=== PATIENT | female | born 1950 | race Caucasian/White ===

== ENCOUNTER 2021-06-15 00:40 | Inpatient (IN) | payer MEDICARE, OTHER ==
[~2021-06-15] VITALS: Ht 152.4 cm; Wt 40.8 kg
[2021-06-15] MEDS ORDERED: methylPREDNISolone SOD SUCC 125 MG/2ML VIAL ONE (00:55)
--- NOTE | 2021-06-15 00:59 | NUR ---
PATIENT CAME TO THE ER [facility] FROM HOME C/O MIDSTERNAL CHEST PAIN RADIATING TO THE BACK THAT HAS BEEN ONGOING FOR A "COUPLE OF DAYS". PATIENT IS ALERT AND ORIENTED x4. PATIENT IS USUALLY ON 2L OF OXYGEN AT HOME. PATIENT IS CURRENTLY BREATHING EVENLY AND UNLABORED ON 2L OF NASAL CANNULA AT 99%. PATIENT IS CONNECTED TO THE MONITOR.
[2021-06-15] MEDS ORDERED: methylPREDNISolone SOD SUCC 125 MG/2ML VIAL IV ONE (01:00)
--- NOTE | 2021-06-15 01:15 | NUR ---
RAD AT BEDSIDE
[2021-06-15 01:41] LABS: BASOPHILS % (AUTO) 0.4 % (0.0-2.0); EOSINOPHILS % (AUTO) 2.1 % (0.0-6.0); HEMATOCRIT 35 % (33-45); HEMOGLOBIN 11.4 g/dL (11.5-14.8); LYMPHOCYTES # (AUTO) 3.6 K/uL (0.8-4.8); LYMPHOCYTES % (AUTO) 33.2 % (20.0-44.0); MEAN CORPUSCULAR HGB CONC 33 g/dl (31.0-36.0); MEAN CORPUSCULAR VOLUME 92 fL (82-100); MONOCYTES # (AUTO) 0.9 K/uL (0.1-1.30); MONOCYTES % (AUTO) 8.6 % (2.0-12.0); NEUTROPHILS % (AUTO) 55.7 % (43.0-81.0); PLATELET COUNT (AUTO) 291 K/uL (150-450); RED BLOOD CELL COUNT(AUTO) 3.77 MIL/uL (4.0-5.2); WHITE BLOOD COUNT (AUTO) 10.7 K/uL (4.3-11.0)
[2021-06-15 01:49] LABS: CALCIUM, SERUM 8.8 mg/dL (8.5-10.1); CARBON DIOXIDE 29 mmol/L (21-32); CHLORIDE 102 mmol/L (98-107); CREATININE 0.9 mg/dL (0.6-1.3); GLUCOSE 107 mg/dL (74-106); POTASSIUM 3.4 mmol/L (3.5-5.1); SODIUM SERUM 139 mmol/L (136-145); UREA NITROGEN, BLOOD 13 mg/dL (7-18)
[2021-06-15 02:03] LABS: ALANINE AMINOTRANSFERASE 17 U/L (12-78); ALBUMIN 3.3 g/dL (3.4-5.0); ALKALINE PHOSPHATASE 78 U/L (46-116); ASPARTATE AMINOTRANSFERASE 15 U/L (15-37); BILIRUBIN,DIRECT 0.1 mg/dL (0.0-0.2); BILIRUBIN,TOTAL 0.3 mg/dL (0.2-1.0); TOTAL PROTEIN, SERUM 7.3 g/dL (6.4-8.2)
[2021-06-15] MEDS ORDERED: LEVO75TA7 PO (02:09)
[2021-06-15] MEDS ORDERED: LOSA25TA27 PO (02:09)
[2021-06-15] MEDS ORDERED: ERGO500093 PO (02:09)
[2021-06-15] MEDS ORDERED: PRAS10TA5 PO (02:09)
[2021-06-15] MEDS ORDERED: FURO20TA4 PO (02:09)
[2021-06-15] MEDS ORDERED: AMIO100T4 PO (02:09)
[2021-06-15] MEDS ORDERED: ALBU8.5H8 INH (02:09)
[2021-06-15] MEDS ORDERED: ESCI20TA PO (02:09)
[2021-06-15] MEDS ORDERED: POTA20TA83 PO (02:09)
[2021-06-15] MEDS ORDERED: LORA-259 PO (02:09)
[2021-06-15] MEDS ORDERED: FLUT10.62 INH (02:09)
[2021-06-15] MEDS ORDERED: METH2.5T PO (02:09)
[2021-06-15] MEDS ORDERED: SPIR25TA6 PO (02:09)
[2021-06-15] MEDS ORDERED: FURO40TA5 PO (02:09)
[2021-06-15] MEDS ORDERED: CARV3.122 PO (02:09)
[2021-06-15] MEDS ORDERED: LEUC5TAB PO (02:09)
[2021-06-15] MEDS ORDERED: NITROGLYCERIN 0.4 MG/TAB BOTTLE SL PRN (03:30)
[2021-06-15] MEDS ORDERED: MORPHINE SULFATE INJ 2 MG/ML DISP.SYRIN IV PRN (03:30)
[2021-06-15] MEDS ORDERED: DOCUSATE SODIUM 100 MG CAPSULE PO PRN (03:30)
[2021-06-15] MEDS ORDERED: ONDANSETRON HCL/PF 4 MG/2 ML VIAL IVP PRN (03:30)
[2021-06-15] MEDS ORDERED: MAG HYDROX/AL HYDROX/SIMETH 30 ML UDC PO PRN (03:30)
[2021-06-15 05:58] LABS: BASOPHILS % (AUTO) 0.2 % (0.0-2.0); EOSINOPHILS % (AUTO) 0.1 % (0.0-6.0); HEMATOCRIT 36 % (33-45); HEMOGLOBIN 11.6 g/dL (11.5-14.8); LYMPHOCYTES % (AUTO) 11.2 % (20.0-44.0); MEAN CORPUSCULAR HGB CONC 33 g/dl (31.0-36.0); MEAN CORPUSCULAR VOLUME 92 fL (82-100); MONOCYTES # (AUTO) 0.1 K/uL (0.1-1.30); MONOCYTES % (AUTO) 0.8 % (2.0-12.0); NEUTROPHILS % (AUTO) 87.7 % (43.0-81.0); PLATELET COUNT (AUTO) 281 K/uL (150-450); RED BLOOD CELL COUNT(AUTO) 3.85 MIL/uL (4.0-5.2); WHITE BLOOD COUNT (AUTO) 9.1 K/uL (4.3-11.0)
[2021-06-15 06:11] LABS: ALANINE AMINOTRANSFERASE 14 U/L (12-78); ALBUMIN 3.3 g/dL (3.4-5.0); ALKALINE PHOSPHATASE 78 U/L (46-116); ASPARTATE AMINOTRANSFERASE 15 U/L (15-37); BILIRUBIN,TOTAL 0.3 mg/dL (0.2-1.0); CARBON DIOXIDE 27 mmol/L (21-32); CHLORIDE 102 mmol/L (98-107); CREATININE 0.9 mg/dL (0.6-1.3); GLUCOSE 131 mg/dL (74-106); MAGNESIUM 1.9 mg/dL (1.8-2.4); PHOSPHORUS 3.8 mg/dL (2.5-4.9); POTASSIUM 3.4 mmol/L (3.5-5.1); SODIUM SERUM 139 mmol/L (136-145); TOTAL PROTEIN, SERUM 7.4 g/dL (6.4-8.2); UREA NITROGEN, BLOOD 17 mg/dL (7-18)
[2021-06-15 06:25] LABS: CHOLESTEROL 229 mg/dL (<200); HDL CHOLESTEROL 44 mg/dL (40-60); LDL 147 mg/dL (0-99); THYROID STIMULATING HORMONE 1.726 uIU/mL (0.358-3.74); TRIGLYCERIDES 117 mg/dL (30-150)
--- NOTE | 2021-06-15 08:00 | NUR ---
DR PAULINO AT BEDSIDE
[2021-06-15] MEDS ORDERED: LEUCOVORIN CALCIUM 5 MG TABLET PO SCH ×2 (08:30→08:39)
[2021-06-15] MEDS ORDERED: HOME MED MISCELLANEOUS XX SCH (08:30)
[2021-06-15 08:47] LABS: IRON, SERUM 38 ug/dl (50-175); TOTAL IRON BINDING CAPACITY 298 ug/dl (250-450)
[2021-06-15] MEDS ORDERED: ALBUTEROL FS 2.5 MG/0.5 ML VIAL.NEB HHN PRN (09:00)
[2021-06-15 09:04] LABS: CHOLESTEROL 225 mg/dL (<200); FERRITIN 222 ng/mL (8-388); HDL CHOLESTEROL 42 mg/dL (40-60); LDL 144 mg/dL (0-99); THYROID STIMULATING HORMONE 5.285 uIU/mL (0.358-3.74); TRIGLYCERIDES 208 mg/dL (30-150)
[2021-06-15] MEDS: LOSARTAN POTASSIUM 25 MG TABLET PO SCH (09:50)
[2021-06-15] MEDS: FLUTICASONE/VILANTEROL 1 EACH BLST.W.DEV IH SCH (09:50)
[2021-06-15] MEDS: SPIRONOLACTONE 25 MG TABLET PO SCH (09:50)
[2021-06-15] MEDS: ASPIRIN 81 MG TAB.CHEW PO SCH (09:50)
[2021-06-15] MEDS: LEVOTHYROXINE SODIUM 75 MCG TABLET PO SCH (09:50)
[2021-06-15] MEDS: FUROSEMIDE 40 MG/4 ML VIAL IV SCH ×2 (09:50→17:00)
[2021-06-15] MEDS: ENOXAPARIN SODIUM 40 MG/0.4 ML DISP.SYRIN SQ SCH (09:50)
[2021-06-15] MEDS: ATORVASTATIN 40 MG TABLET PO SCH (09:50)
[2021-06-15] MEDS: POTASSIUM CHLORIDE 20 MEQ TAB.PRT.SR PO SCH ×4 (09:50→11:50)
[2021-06-15] MEDS: CARVEDILOL 3.125 MG TABLET PO SCH ×2 (09:50→17:00)
[2021-06-15] MEDS ORDERED: ENOXAPARIN SODIUM 40 MG/0.4 ML DISP.SYRIN SQ ONE (09:52)
[2021-06-15] MEDS ORDERED: FUROSEMIDE 40 MG/4 ML VIAL ONE (09:53)
[2021-06-15] MEDS ORDERED: LEVOTHYROXINE SODIUM 50 MCG TABLET ONE (09:53)
[2021-06-15] MEDS ORDERED: ATORVASTATIN 40 MG TABLET ONE (09:53)
[2021-06-15] MEDS ORDERED: LOSARTAN POTASSIUM 25 MG TABLET ONE (09:54)
[2021-06-15] MEDS ORDERED: POTASSIUM CHLORIDE 20 MEQ TAB.PRT.SR PO ONE ×3 (09:54→11:33)
[2021-06-15] MEDS ORDERED: CARVEDILOL 3.125 MG TABLET ONE (09:54)
[2021-06-15] MEDS ORDERED: ASPIRIN 81 MG TAB.CHEW ONE (09:55)
[2021-06-15] MEDS ORDERED: SPIRONOLACTONE 25 MG TABLET ONE (09:55)
[2021-06-15] MEDS ORDERED: LEVOTHYROXINE SODIUM 25 MCG TABLET ONE (09:55)
--- NOTE | 2021-06-15 13:40 | NUR ---
ROOM 326-1
--- NOTE | 2021-06-15 15:15 | NUR ---
BEDSIDE REPORT GIVEN TO FAN NEWBERRY FOR KATIE
[2021-06-15 15:20] VITALS: BP 94/50
--- NOTE | 2021-06-15 15:20 | NUR ---
GEAR TOOTH GRINDING MACHINE OPERATORWAX SPECIALIST NOTES RECEIVED PATIENT FROM ER VIA GURNEY, AWAKE AND A/O X4. ASSISTED AND ENDORSED BY NURSE EL. ON O2 AT 2LPM VIA NASAL CANNULA TOLERATING WELL. NO SOB NOTED. NOT IN DISTRESS. WITH NO COMPLAINTS OF PAIN AT THIS TIME. WITH IV ACCESS AT LEFT FOREARM G20 SALINE LOCKED, PATENT AND INTACT. ON CARDIAC DIET. MADE COMFORTABLE ON BED. SKIN ASSESSMENT DONE. ON TELE MONITOR CURRENTLY READING NORMAL SINUS RHYTHM AT 76BPM. SAFETY MEASURES IN PLACE. BED ON LOWEST AND LOCKED POSITION WITH SIDE RAILS UP X2. CALL LIGHT WITHIN REACH. WILL ENDORSE TO NEXT SHIFT FOR KATIE.
[2021-06-15 16:00] VITALS: BP 94/60
[2021-06-15] MEDS ORDERED: METHOTREXATE SODIUM (2.5MG) 2.5 MG TABLET PO SCH (19:00)
--- NOTE | 2021-06-15 19:35 | NUR ---
CLOTH DESIZING RANGE OPERATOR CHIEF CLOSING NOTES PATIENT AWAKE AND A/O X4. ON O2 AT 2LPM VIA NASAL CANNULA TOLERATING WELL. NO SOB NOTED. NOT IN DISTRESS. WITH NO COMPLAINTS OF PAIN AT THIS TIME. WITH IV ACCESS AT LEFT FOREARM G20 SALINE LOCKED, PATENT AND INTACT. ON CARDIAC DIET. MADE COMFORTABLE ON BED. ON TELE MONITOR CURRENTLY READING NORMAL SINUS RHYTHM AT 87BPM. SAFETY MEASURES IN PLACE. BED ON LOWEST AND LOCKED POSITION WITH SIDE RAILS UP X2. CALL LIGHT WITHIN REACH. WILL ENDORSE TO NEXT SHIFT FOR KATIE.
[2021-06-15 20:00] VITALS: BP 107/48
[2021-06-15] MEDS: ACETAMINOPHEN 325 MG TABLET PO PRN (20:29)
[2021-06-15] MEDS: ESCITALOPRAM OXALATE (10 MG) 10 MG TABLET PO SCH (21:57)
[2021-06-16] VITALS: BP 97/58
[2021-06-16] MEDS: LORAZEPAM 1 MG TABLET PO PRN ×3 (00:36→21:36)
[2021-06-16 04:00] VITALS: BP 94/56
--- NOTE | 2021-06-16 06:21 | NUR ---
PLANNING ASSOCIATE NOTES AWAKE & RESPONSIVE. NOT IN ANY DISTRESS. NO SOB NOTED. DENIES ANY PAIN OR DISCOMFORT AT THIS TIME. ON TELE SR WITH BBB @ 81 WITH OCC PVCS WITH IV-HL PATENT & INTACT. MONITORED ACCORDINGLY. CALL LIGHT WITHIN REACH. BED IN LOWEST POSITION. SR UP X 2 FOR SAFETY. WILL ENDORSE TO NEXT SHIFT.
[2021-06-16 06:45] LABS: BASOPHILS % (AUTO) 0.2 % (0.0-2.0); EOSINOPHILS % (AUTO) 0.1 % (0.0-6.0); HEMATOCRIT 32 % (33-45); HEMOGLOBIN 10.6 g/dL (11.5-14.8); LYMPHOCYTES # (AUTO) 2.4 K/uL (0.8-4.8); LYMPHOCYTES % (AUTO) 20.4 % (20.0-44.0); MEAN CORPUSCULAR HGB CONC 33 g/dl (31.0-36.0); MEAN CORPUSCULAR VOLUME 92 fL (82-100); MONOCYTES # (AUTO) 1.2 K/uL (0.1-1.30); MONOCYTES % (AUTO) 9.8 % (2.0-12.0); NEUTROPHILS # (AUTO) 8.3 K/uL (1.8-8.9); NEUTROPHILS % (AUTO) 69.5 % (43.0-81.0); PLATELET COUNT (AUTO) 296 K/uL (150-450); RED BLOOD CELL COUNT(AUTO) 3.51 MIL/uL (4.0-5.2); WHITE BLOOD COUNT (AUTO) 11.9 K/uL (4.3-11.0)
--- NOTE | 2021-06-16 07:20 | NUR ---
EMERGENCY ROOM ORDERLY OPENING NOTES PATIENT IS ASLEEP IN BED, EASY TO AROUSE. A/O X4. NO S/S OF DISTRESS. NO SOB. BREATHING IS EVEN AND UNLABORED. ON O2 AT 2LPM VIA NASAL CANNULA TOLERATING WELL. IV ACCESS LFA#20 SALINE LOCKED, PATENT AND INTACT. ON TELE MONITOR CURRENTLY READING NORMAL SINUS RHYTHM AT 70'S BPM WITH BBB. SAFETY MEASURES IN PLACE WITH BED ON LOW POSITION AND SIDE RAILS UP X2. CALL LIGHT WITHIN REACH. WILL CONTINUE TO MONITOR THROUGHOUT SHIFT.
[2021-06-16 07:30] LABS: ALANINE AMINOTRANSFERASE 11 U/L (12-78); ALKALINE PHOSPHATASE 76 U/L (46-116); ASPARTATE AMINOTRANSFERASE 11 U/L (15-37); BILIRUBIN,TOTAL 0.2 mg/dL (0.2-1.0); CALCIUM, SERUM 8.8 mg/dL (8.5-10.1); CARBON DIOXIDE 29 mmol/L (21-32); CHLORIDE 103 mmol/L (98-107); CREATININE 0.9 mg/dL (0.6-1.3); GLUCOSE 111 mg/dL (74-106); MAGNESIUM 1.9 mg/dL (1.8-2.4); POTASSIUM 4.3 mmol/L (3.5-5.1); SODIUM SERUM 139 mmol/L (136-145); TOTAL PROTEIN, SERUM 6.7 g/dL (6.4-8.2); UREA NITROGEN, BLOOD 22 mg/dL (7-18)
[2021-06-16 08:00] VITALS: BP 92/60
[2021-06-16] MEDS: SPIRONOLACTONE 25 MG TABLET PO SCH (08:25)
[2021-06-16] MEDS: ASPIRIN 81 MG TAB.CHEW PO SCH (08:25)
[2021-06-16] MEDS: ENOXAPARIN SODIUM 40 MG/0.4 ML DISP.SYRIN SQ SCH (08:25)
[2021-06-16] MEDS: ATORVASTATIN 40 MG TABLET PO SCH (08:25)
[2021-06-16] MEDS: POTASSIUM CHLORIDE 20 MEQ TAB.PRT.SR PO SCH (08:25)
[2021-06-16] MEDS: LEVOTHYROXINE SODIUM 75 MCG TABLET PO SCH (08:25)
[2021-06-16] MEDS: FUROSEMIDE 40 MG/4 ML VIAL IV SCH (08:26)
[2021-06-16] MEDS: LOSARTAN POTASSIUM 25 MG TABLET PO SCH (08:27)
[2021-06-16] MEDS: CARVEDILOL 3.125 MG TABLET PO SCH ×2 (08:28→16:25)
[2021-06-16] MEDS: FLUTICASONE/VILANTEROL 1 EACH BLST.W.DEV IH SCH (08:38)
[2021-06-16] MEDS ORDERED: ERGOCALCIFEROL (VITAMIN D 2) 50,000 UNIT CAPSULE PO SCH (09:00)
[2021-06-16] MEDS ORDERED: LEUCOVORIN CALCIUM 5 MG TABLET PO SCH (09:00)
[2021-06-16 16:00] VITALS: BP 101/62
--- NOTE | 2021-06-16 19:09 | NUR ---
MS RN CLOSING NOTES PATIENT IN BED, AWAKE, A/O X4. PATIENT ON ROOM AIR, TOLERATING WELL. BREATHING EVEN AND UNLABORED. NO SOB NOTED. NO COMPLAINS OF PAIN AT THIS TIME. SAFETY PRECAUTIONS IN PLACE; BED IN LOW POSITION AND LOCKED, RAILS UP X2, CALL LIGHT WITHIN REACH.WILL ENDORSE CONTINUITY OF CARE TO ONCOMING SHIFT.
[2021-06-16 20:32] VITALS: BP 111/67
[2021-06-16] MEDS: ESCITALOPRAM OXALATE (10 MG) 10 MG TABLET PO SCH (21:56)
[2021-06-17] MEDS: ACETAMINOPHEN 325 MG TABLET PO PRN (02:49)
--- NOTE | 2021-06-17 06:06 | NUR ---
MS RN NOTES AWAKE & RESPONSIVE. NOT IN ANY DISTRESS. NO SOB NOTED. DENIES ANY PAIN OR DISCOMFORT AT THIS TIME. WITH IV-HL PATENT & INTACT. MONITORED ACCORDINGLY. CALL LIGHT WITHIN REACH. BED IN LOWEST POSITION. SR UP X 2 WITH BED ALARM ON FOR SAFETY. WILL ENDORSE TO NEXT SHIFT.
--- NOTE | 2021-06-17 07:34 | NUR ---
MS RN OPENING NOTES PATIENT IS ASLEEP IN BED, EASY TO AROUSE. A/O X4. NO S/S OF DISTRESS. NO SOB. BREATHING IS EVEN AND UNLABORED. ON O2 AT 2LPM VIA NASAL CANNULA TOLERATING WELL. IV ACCESS, PATENT AND INTACT. SAFETY MEASURES IN PLACE WITH BED ON LOW POSITION AND SIDE RAILS UP X2. CALL LIGHT WITHIN REACH. WILL CONTINUE TO MONITOR THROUGHOUT SHIFT.
[2021-06-17 08:00] VITALS: BP 94/50
[2021-06-17 08:05] LABS: CALCIUM, SERUM 8.8 mg/dL (8.5-10.1); CREATININE 0.9 mg/dL (0.6-1.3); POTASSIUM 5.5 mmol/L (3.5-5.1)
[2021-06-17] MEDS: ASPIRIN 81 MG TAB.CHEW PO SCH (08:21)
[2021-06-17] MEDS: CARVEDILOL 3.125 MG TABLET PO SCH ×2 (08:21→16:57)
[2021-06-17] MEDS: FLUTICASONE/VILANTEROL 1 EACH BLST.W.DEV IH SCH (08:21)
[2021-06-17] MEDS: SPIRONOLACTONE 25 MG TABLET PO SCH (08:21)
[2021-06-17] MEDS: LEVOTHYROXINE SODIUM 75 MCG TABLET PO SCH ×2 (08:22→13:12)
[2021-06-17] MEDS: POTASSIUM CHLORIDE 20 MEQ TAB.PRT.SR PO SCH (08:22)
[2021-06-17] MEDS: ATORVASTATIN 40 MG TABLET PO SCH (08:22)
[2021-06-17] MEDS: AMIODARONE HCL 200 MG TABLET PO SCH (08:22)
[2021-06-17] MEDS: LOSARTAN POTASSIUM 25 MG TABLET PO SCH (08:22)
[2021-06-17] MEDS: ENOXAPARIN SODIUM 40 MG/0.4 ML DISP.SYRIN SQ SCH (08:24)
[2021-06-17] MEDS ORDERED: Z GUARD REMEDY 2 OZ OINT TP PRN (11:00)
[2021-06-17] MEDS ORDERED: SODIUM POLYSTYRENE SULFONATE 15 G/60 ML BOTTLE PO ONE (13:30)
[2021-06-17] MEDS ORDERED: METOPROLOL TARTRATE INJ 5 MG/5 ML AMPUL ONE (13:52)
[2021-06-17] MEDS ORDERED: NITROGLYCERIN 0.4 MG/TAB BOTTLE ONE (13:52)
[2021-06-17] MEDS ORDERED: IV NS 0.9% 250 ML IV ONE (13:53)
[2021-06-17] MEDS ORDERED: IOHEXOL-350 100 ML VIAL IV ONE (13:53)
[2021-06-17] MEDS ORDERED: CT SWABBABLE VALVE TRANS SET 1 EA INFUS.SET MC ONE (13:53)
--- NOTE | 2021-06-17 14:05 | NUR ---
MS RN NOTES PT WAS PICKED UP BY STONE CARRIAGE OPERATOR AT THIS TIME FOR [facility].
[2021-06-17] MEDS ORDERED: NITROGLYCERIN 0.4 MG/TAB BOTTLE SL ONE (14:30)
[2021-06-17] MEDS: METOPROLOL TARTRATE INJ 5 MG/5 ML AMPUL IVP PRN ×2 (14:30→14:35)
[2021-06-17 16:00] VITALS: BP 125/65
--- NOTE | 2021-06-17 16:09 | NUR ---
RN NOTE RECEIVED CALL FROM DR PAULINO, GAVE NEW ORDER TO DC LOVENOX, AND START ELIQUIS 10MG PO BID, WILL CONTINUE TO MONITOR
[2021-06-17] MEDS: APIXABAN 5 MG TABLET PO SCH (16:56)
[2021-06-17] MEDS: ENSURE ENLIVE CHOC 237 ML CAN PO SCH (16:57)
--- NOTE | 2021-06-17 18:05 | NUR ---
MS RN NOTE REMOVED LHAND#24 IV ACCESS PER PT REQUEST. RFA#18 ACCESS PATENT, INTACT AND FLUSHING WELL.
--- NOTE | 2021-06-17 19:49 | NUR ---
MS RN OPENING NOTES Patient is awake, A&Ox4. Denies pain, SOB, or any needs at this time. No signs of distress. Patient reports having BM after kayexalate admin. Will continue to monitor patient.
[2021-06-17 20:00] VITALS: BP 100/58
[2021-06-17] MEDS: ESCITALOPRAM OXALATE (10 MG) 10 MG TABLET PO SCH (21:39)
[2021-06-17] MEDS: LORAZEPAM 1 MG TABLET PO PRN (21:42)
--- NOTE | 2021-06-18 02:45 | NUR ---
Patient reports "anxiety attack" feeling as though her heart is racing, and looks tachypneic. HR 89, RR 24, O2 sat 100% on 2L NC. Says she cannot sleep and her thoughts are overwhelming her. Notified BENEFITS ADVISOR division engineer. Isotope Hydrologist said okay to give another dose of Ativan 1mg despite last dose being given 4 hours ago.
[2021-06-18] MEDS: LORAZEPAM 1 MG TABLET PO PRN ×2 (02:50→21:12)
--- NOTE | 2021-06-18 03:57 | NUR ---
Patient reports ativan is not working and she still cannot fall asleep. However, patient's RR has now improved and heart racing is not present. Will give PRN tylenol, warm blanket, quiet environment.
--- NOTE | 2021-06-18 04:06 | NUR ---
Patient refusing to have door prison closed or light turned off for comfort/sleeping measures.
[2021-06-18] MEDS: ACETAMINOPHEN 325 MG TABLET PO PRN (04:22)
--- NOTE | 2021-06-18 06:39 | NUR ---
Patient finally able to fall asleep around 0330. Still sleeping well though easy to wake. Denies chest pain throughout night. Anxiety and trouble sleeping only overnight issue. Had x2 BMs, soft brown. Denies SOB.
[2021-06-18 07:04] LABS: BASOPHILS % (AUTO) 0.5 % (0.0-2.0); EOSINOPHILS % (AUTO) 3.3 % (0.0-6.0); HEMATOCRIT 32 % (33-45); HEMOGLOBIN 10.6 g/dL (11.5-14.8); LYMPHOCYTES # (AUTO) 2.8 K/uL (0.8-4.8); MEAN CORPUSCULAR HGB CONC 34 g/dl (31.0-36.0); MEAN CORPUSCULAR VOLUME 92 fL (82-100); MONOCYTES # (AUTO) 0.4 K/uL (0.1-1.30); MONOCYTES % (AUTO) 4.1 % (2.0-12.0); NEUTROPHILS # (AUTO) 5.6 K/uL (1.8-8.9); NEUTROPHILS % (AUTO) 61.1 % (43.0-81.0); PLATELET COUNT (AUTO) 271 K/uL (150-450); RED BLOOD CELL COUNT(AUTO) 3.43 MIL/uL (4.0-5.2); WHITE BLOOD COUNT (AUTO) 9.1 K/uL (4.3-11.0)
[2021-06-18 08:00] VITALS: BP 96/52
--- NOTE | 2021-06-18 08:00 | NUR ---
RECEIVED PT. IN AM AERT AND ORIENTED X4.
[2021-06-18 08:52] LABS: ALBUMIN 2.8 g/dL (3.4-5.0); BILIRUBIN,TOTAL 0.4 mg/dL (0.2-1.0); CALCIUM, SERUM 8.4 mg/dL (8.5-10.1); CREATININE 0.7 mg/dL (0.6-1.3); MAGNESIUM 1.8 mg/dL (1.8-2.4); PHOSPHORUS 3.3 mg/dL (2.5-4.9); POTASSIUM 3.6 mmol/L (3.5-5.1); TOTAL PROTEIN, SERUM 6.1 g/dL (6.4-8.2)
[2021-06-18] MEDS: CARVEDILOL 3.125 MG TABLET PO SCH ×2 (09:00→18:08)
[2021-06-18] MEDS: ENSURE ENLIVE CHOC 237 ML CAN PO SCH ×3 (10:23→17:56)
[2021-06-18] MEDS: ATORVASTATIN 40 MG TABLET PO SCH (10:44)
[2021-06-18] MEDS: LEVOTHYROXINE SODIUM 75 MCG TABLET PO SCH (10:44)
[2021-06-18] MEDS: ASPIRIN 81 MG TAB.CHEW PO SCH (10:44)
[2021-06-18] MEDS: APIXABAN 5 MG TABLET PO SCH ×2 (10:47→18:03)
[2021-06-18 13:07] LABS: *SPE A/G RATIO 0.9 (0.7-1.7); *SPE ALPHA-1-GLOBULIN 0.3 g/dL (0.0-0.4); *SPE M-SPIKE Not Observed g/dL (Not Observed)
[2021-06-18 16:30] VITALS: BP 104/58
--- NOTE | 2021-06-18 16:46 | NUR ---
SLEEPING ON/OFF THROUGHOUT DAY,NO COMPLAINTS OFFERED.
[2021-06-18] MEDS: FLUTICASONE/VILANTEROL 1 EACH BLST.W.DEV IH SCH (17:55)
--- NOTE | 2021-06-18 19:30 | NUR ---
MS RN OPENING NOTES PATIENT WAS SEEN AWAKE IN BED RESTING. PATIENT'S ALERT AND ORIENTEDX4. PATIENT'S ON 2LPM OF OXYGEN VIA NASAL CANNULA WITH NO RESPIRATORY DISTRESS NOTED. PATIENT HAS A SALINE LOCK ON HER RIGHT FOREARM GAUGE #18, WHICH IS INTACT, PATENT, AND FLUSHING WELL. PATIENT'S IN NO ACUTE DISTRESS AT THIS TIME. SAFETY MEASURES IN PLACE: BED LOCKED, BED ALARM ON, SIDE RAILS UPX3, AND CALL LIGHT WITHIN REACH. WILL CONTINUE TO MONITOR THE PATIENT.
[2021-06-18 20:00] VITALS: BP 115/60
[2021-06-18] MEDS: ESCITALOPRAM OXALATE (10 MG) 10 MG TABLET PO SCH ×2 (21:09→22:21)
--- NOTE | 2021-06-18 21:12 | NUR ---
MS RN NOTES PATIENT WAS FEELING RESTLESS AND ANXIOUS AT THIS TIME. PATIENT WAS GIVEN 1MG OF ATIVAN PO. WILL CONTINUE TO MONITOR THE PATIENT.
[2021-06-19] MEDS: ACETAMINOPHEN 325 MG TABLET PO PRN (00:34)
[2021-06-19 06:51] LABS: BASOPHILS % (AUTO) 0.3 % (0.0-2.0); EOSINOPHILS % (AUTO) 3.8 % (0.0-6.0); HEMATOCRIT 32 % (33-45); HEMOGLOBIN 10.7 g/dL (11.5-14.8); LYMPHOCYTES # (AUTO) 2.4 K/uL (0.8-4.8); LYMPHOCYTES % (AUTO) 32.9 % (20.0-44.0); MEAN CORPUSCULAR HGB CONC 33 g/dl (31.0-36.0); MEAN CORPUSCULAR VOLUME 93 fL (82-100); MONOCYTES # (AUTO) 0.4 K/uL (0.1-1.30); NEUTROPHILS # (AUTO) 4.2 K/uL (1.8-8.9); PLATELET COUNT (AUTO) 241 K/uL (150-450); RED BLOOD CELL COUNT(AUTO) 3.49 MIL/uL (4.0-5.2); WHITE BLOOD COUNT (AUTO) 7.3 K/uL (4.3-11.0)
[2021-06-19 07:04] LABS: CALCIUM, SERUM 8.8 mg/dL (8.5-10.1); CREATININE 0.6 mg/dL (0.6-1.3); POTASSIUM 3.4 mmol/L (3.5-5.1)
--- NOTE | 2021-06-19 07:29 | NUR ---
MS RN CLOSING NOTES PATIENT WAS SEEN AWAKE IN BED RESTING. PATIENT'S ALERT AND ORIENTEDX4. PATIENT'S ON 2LPM OF OXYGEN VIA NASAL CANNULA WITH NO RESPIRATORY DISTRESS NOTED. PATIENT HAS A SALINE LOCK ON HER RIGHT FOREARM GAUGE #18, WHICH IS INTACT, PATENT, AND FLUSHING WELL. PATIENT'S IN NO ACUTE DISTRESS AT THIS TIME. SAFETY MEASURES IN PLACE: BED LOCKED, BED ALARM ON, SIDE RAILS UPX3, AND CALL LIGHT WITHIN REACH. ENDORSED CARE TO THE DAY SHIFT NURSE.
--- NOTE | 2021-06-19 07:30 | NUR ---
MS RN OPENING NOTES RECEIVED PATIENT AWAKE IN BED RESTING AND A/O X4. ON 2LPM OF OXYGEN VIA NASAL CANNULA WITH NO RESPIRATORY DISTRESS NOTED. WITH IV ACCESS AT RIGHT FOREARM G18, SALINE LOCKED, INTACT, PATENT, AND FLUSHING WELL. WITH NO COMPLAINTS OF PAIN AT THIS TIME. SAFETY MEASURES IN PLACE: BED LOCKED, BED ALARM ON, SIDE RAILS UPX3, AND CALL LIGHT WITHIN REACH. WILL CONTINUE TO MONITOR THE PATIENT.
[2021-06-19 08:00] VITALS: BP 100/57
[2021-06-19] MEDS: LEVOTHYROXINE SODIUM 75 MCG TABLET PO SCH (08:37)
[2021-06-19] MEDS: ASPIRIN 81 MG TAB.CHEW PO SCH (08:37)
[2021-06-19] MEDS: AMIODARONE HCL 200 MG TABLET PO SCH (08:38)
[2021-06-19] MEDS: ATORVASTATIN 40 MG TABLET PO SCH (08:40)
[2021-06-19] MEDS: APIXABAN 5 MG TABLET PO SCH (08:42)
[2021-06-19] MEDS: CARVEDILOL 3.125 MG TABLET PO SCH (08:48)
[2021-06-19] MEDS: FLUTICASONE/VILANTEROL 1 EACH BLST.W.DEV IH SCH (08:49)
[2021-06-19] MEDS: ENSURE ENLIVE CHOC 237 ML CAN PO SCH ×2 (08:49→11:55)
[2021-06-19] MEDS ORDERED: POTASSIUM CHLORIDE 20 MEQ TAB.PRT.SR PO SCH (09:00)
[2021-06-19] MEDS ORDERED: SPIRONOLACTONE 25 MG TABLET PO SCH (09:00)
[2021-06-19] MEDS ORDERED: ALLA266C2 TP (10:29)
[2021-06-19] MEDS ORDERED: DOCU-270 PO (10:29)
[2021-06-19] MEDS ORDERED: ATOR40TA PO (10:29)
[2021-06-19] MEDS ORDERED: ASPI-1169 PO (10:29)
[2021-06-19] MEDS ORDERED: APIX5TAB PO (10:29)
[2021-06-19 16:00] VITALS: BP 110/63
--- NOTE | 2021-06-19 16:45 | NUR ---
MS LACQUER SHADER NOTES PATIENT IS FOR DISCHARGE PER DOCTOR RYANN'S ORDER. FOR DISCHARGE TO [facility]. GIVEN REPORT TO NURSE SANCHEZ AT [facility] AND INFORMED THAT PATIENT IS COMING. DISCHARGE INSTRUCTION AND EDUCATION PROVIDED TO PATIENT AND EXPLAINED MEDICATIONS AND PRESCRIPTIONS. PATIENT VERBALIZED UNDERSTANDING. DISCHARGE FORM AND BELONGINGS LIST FORM SIGNED BY PATIENT. ALL BELONGINGS ARE ACCOUNTED FOR. NAME WRIST BAND AND IV LINE REMOVED. PATIENT WAS PICKED UP BY AMBULANCE PERSONNEL AND LEFT VIA GURNEY IN STABLE CONDITION. MD AND CHARGE NURSE ARE AWARE OF THE DISCHARGE.
[2021-06-22] MEDS ORDERED: APIXABAN 5 MG TABLET PO SCH (17:00)
== END 2021-06-19 16:45 | DRG 175 ==
LOC: ER 00:45 → TRANSITION 03:51 → TELE 13:42 → MED 06-16 10:36
PROVIDERS: ADMIT Nurse Practitioner Acute Care; ATTEND Nurse Practitioner Acute Care
DX: I26.99 Other pulmonary embolism without acute cor pulmonale (principal); E43 Unspecified severe protein-calorie malnutrition; Z68.1 Body mass index [BMI] 19.9 or less, adult; R64 Cachexia; J96.11 Chronic respiratory failure with hypoxia; J84.9 Interstitial pulmonary disease, unspecified; I25.10 Atherosclerotic heart disease of native coronary artery without angina pectoris; F32.A Depression, unspecified; M06.9 Rheumatoid arthritis, unspecified; J44.9 Chronic obstructive pulmonary disease, unspecified; I25.5 Ischemic cardiomyopathy; Z20.822 Contact with and (suspected) exposure to COVID-19; I11.0 Hypertensive heart disease with heart failure; Z86.16 Personal history of COVID-19; Z95.1 Presence of aortocoronary bypass graft; Z93.1 Gastrostomy status; Z79.51 Long term (current) use of inhaled steroids; Z79.899 Other long term (current) drug therapy; I34.0 Nonrheumatic mitral (valve) insufficiency; E03.9 Hypothyroidism, unspecified; Z96.641 Presence of right artificial hip joint; I50.9 Heart failure, unspecified; E87.5 Hyperkalemia; Z87.891 Personal history of nicotine dependence; Z99.81 Dependence on supplemental oxygen; Z95.810 Presence of automatic (implantable) cardiac defibrillator; M54.9 Dorsalgia, unspecified
CPT/HCPCS: 36415; 71045-TC; 73502; 75574; 80048-TC; 80053-TC; 80061-TC; 80076-TC; 82728-TC; 83540-TC; 83735-TC; 83880; 84100-TC; 84155; 84165; 84443-TC; 84484-TC; 85025-TC; 85730-TC; 87081-TC; 93307-TC; 93970-TC; 94799-TC; 97112-TC; 97116-TC; 97530-TC; C9803; G0378; J1650; J1940; J2270; J2405; J2930; J3490; J7050; J8610; Q9967